=== PATIENT | male | born 1990 | race African-American/Black ===

== ENCOUNTER 2017-11-06 00:11 | Emergency (ER) | payer OTHER ==
[~2017-11-06] VITALS: Ht 175.3 cm; Wt 81.6 kg
[~2017-11-06 00:11] MED LIST: NKM
[2017-11-06] MEDS ORDERED: Ketorolac 30mg Inj IV ONE (00:30)
[2017-11-06 00:47] VITALS: BP 119/83
--- NOTE | 2017-11-06 01:05 | Emergency Room Report ---
History of Present Illness General Chief Complaint: Alcohol Intoxication Source: Patient, EMS Present Illness HPI Is a 26-year-old male with history of asthma. He presents with chief complaint of diarrhea. Initially was very vague in his complaint. He complaining of needing medical treatment. Per EMS his friend called because he was having profuse diarrhea. Possible food poisoning. Patient said symptoms started last night with vomiting. Vomiting is better but now with cramps and diarrhea. Diarrhea is profuse. No fever or chills. Also been drinking alcohol tonight. Methamphetamine use today also. Pain is diffuse. No radiation. Allergies: Coded Allergies: PENICILLINS (Verified Allergy, Severe, rash, 03/22/13) Patient History Past Medical History: see triage record, old chart reviewed, asthma Past Surgical History: other Pertinent Family History: none Social History: Reports: alcohol use Immunizations: other Reviewed Nursing Documentation: PMH: Agreed; PSxH: Agreed Nursing Documentation-PMH Hx Asthma: Yes Review of Systems Eye: Denies: eye pain, blurred vision ENT: Denies: ear pain, nose congestion, throat swelling Respiratory: Denies: cough, shortness of breath Cardiovascular: Denies: chest pain, palpitations Gastrointestinal: Reports: abdominal pain, diarrhea, nausea, vomiting Musculoskeletal: Denies: back pain, joint pain Skin: Denies: rash Neurological: Denies: headache, numbness Endocrine: Denies: increased thirst, increased urine Hematologic/Lymphatic: Denies: easy bruising All Other Systems: negative except mentioned in HPI Physical Exam Vital Signs Date Time Temp Pulse Resp B/P (MAP) Pulse Ox O2 Delivery O2 Flow Rate FiO2 11/06/17 00:05 97.0 74 16 119/83 95 97.0 vitals unremarkable Sp02 EP Interpretation: reviewed, normal General Appearance: well appearing, no apparent distress, alert Head: normocephalic, atraumatic Eyes: bilateral eye PERRL, bilateral eye EOMI ENT: hearing grossly normal, normal pharynx Neck: full range of motion, supple, no meningismus Respiratory: chest non-tender, lungs clear, normal breath sounds Cardiovascular #1: regular rate, rhythm, no murmur Gastrointestinal: no mass, no organomegaly, no bruit, non-distended, abnormal bowel sounds - hyperactive, tenderness - diffuse Musculoskeletal: back normal, normal range of motion Psychiatric: mood/affect normal Skin: warm/dry Medical Decision Making Diagnostic Impression: Primary Impression: Diarrhea Qualified Codes: R19.7 - Diarrhea, unspecified Additional Impression: Methamphetamine abuse ER Course patient presents with profuse diarrhea. Does show some mild dehydration on his lap. Better after IV fluids and Toradol. We'll discharge home with antibiotics. No evidence of an acute abdomen. Last Vital Signs Date Time Temp Pulse Resp B/P (MAP) Pulse Ox O2 Delivery O2 Flow Rate FiO2 11/06/17 00:47 97.0 16 119/83 95 97.0 11/06/17 00:05 74 Status: improved Disposition: HOME, SELF-CARE Condition: Stable Scripts Ciprofloxacin Hcl* (CIPROFLOXACIN HCL*) 500 Mg Tablet 500 MG ORAL Q12H, #14 TAB 0 Refills Prov: ELYSIA NEGRON M.D. 11/06/17 Additional Instructions: Follow-up with your doctor in 7 days. Return if symptom worsen. ELYSIA NEGRON M.D. Nov 06, 2017 01:05
[2017-11-06 01:16] LABS: HEMATOCRIT 48.9 % (42.0-52.0); HEMOGLOBIN 15.3 G/DL (14.2-18.0); MEAN CORPUSCULAR VOLUME 74 FL (80-99); PLATELET COUNT 275 K/UL (150-450); RED BLOOD COUNT 6.59 M/UL (4.70-6.10); RED CELL DISTRIBUTION WIDTH 13.3 % (11.6-14.8); WHITE BLOOD COUNT 7.6 K/UL (4.8-10.8)
[2017-11-06 01:26] LABS: ANION GAP 8 mmol/L (5-15); BLOOD UREA NITROGEN 17 mg/dL (7-18); CALCIUM 7.6 MG/DL (8.5-10.1); CARBON DIOXIDE 30 MMOL/L (21-32); CHLORIDE 105 MMOL/L (98-107); CREATININE 1.4 MG/DL (0.55-1.30); POTASSIUM 3.7 MMOL/L (3.5-5.1); SODIUM 143 MMOL/L (136-145)
[2017-11-06 01:31] LABS: ALANINE AMINOTRANSFERASE 27 U/L (12-78); ALBUMIN 4.2 G/DL (3.4-5.0); ALKALINE PHOSPHATASE 157 U/L (46-116); ASPARTATE AMINO TRANSFERASE 32 U/L (15-37); BILIRUBIN,TOTAL 0.7 MG/DL (0.2-1.0)
[2017-11-06] MEDS ORDERED: CIPROFLOXACIN500 M2 ORAL (02:16)
[2017-11-06 02:27] VITALS: BP 119/83
== END 2017-11-06 02:27 | disposition home or self-care (01) ==
LOC: EDBD 00:11 → EMR 01:16
DX: R19.7 Diarrhea, unspecified (principal); F15.10 Other stimulant abuse, uncomplicated; R10.9 Unspecified abdominal pain; R11.2 Nausea with vomiting, unspecified; Z88.0 Allergy status to penicillin; J45.909 Unspecified asthma, uncomplicated
CPT/HCPCS: 36415; 80053; 80329; 83690; 85007; 85025; 96361; 96374; 96375; 99284; J1885; J2405